=== PATIENT | female | born 1990 | race African-American/Black ===

== ENCOUNTER 2017-07-12 09:05 | Emergency (ER) | payer MEDICAID ==
[~2017-07-12] VITALS: Ht 167.6 cm; Wt 83.3 kg
[~2017-07-12 09:05] MED LIST: AMOX-291 PO; HYDR-3240 PO
[2017-07-12 09:06] VITALS: BP 107/69
[2017-07-12 09:47] LABS: BASOPHILS # (AUTO) 0.05 x10^3/uL (0-0.1); BASOPHILS % (AUTO) 1 % (0-1); EOSINOPHILS # (AUTO) 0.17 x10^3/uL (0-0.4); EOSINOPHILS % (AUTO) 2 % (1-7); LYMPHOCYTES # (AUTO) 2.87 x10^3/uL (1-3.4); LYMPHOCYTES % (AUTO) 39 % (22-44); MD NO; MEAN CORPUSCULAR HEMOGLOBIN 26.9 pg (27.0-34.8); MEAN CORPUSCULAR HGB CONC 33.1 g/dL (32.4-35.8); MEAN CORPUSCULAR VOLUME 81.2 fL (80-100); MEAN PLATELET VOLUME 9.7 fL (7.4-10.4); MONOCYTES # (AUTO) 0.71 x10^3/uL (0.2-0.8); MONOCYTES % (AUTO) 10 % (2-9); NEUTROPHILS # (AUTO) 3.52 x10^3/uL (1.8-6.8); NEUTROPHILS % (AUTO) 48 % (42-75); PLATELET COUNT 209 x10^3/uL (130-400); RED BLOOD COUNT 4.86 x10^6/uL (3.82-5.3); RED CELL DISTRIBUTION WIDTH 13.3 % (9.6-15.2)
[2017-07-12 09:59] LABS: ALANINE AMINOTRANSFERASE 23 U/L (12-78); ALBUMIN 3.5 g/dL (3.4-5.0); ANION GAP 7 mmol/L (5-15); CALCIUM 8.5 mg/dL (8.5-10.1); CHLORIDE 110 mmol/L (98-107); CREATININE 0.91 mg/dL (0.55-1.02)
[2017-07-12 10:04] LABS: ALKALINE PHOSPHATASE 75 U/L (45-117); BILIRUBIN,TOTAL 0.2 mg/dL (0.2-1.0)
[2017-07-12] MEDS ORDERED: MAALOX/HYOSCYAMINE/LIDOCAINE 45 ML BTL PO ONE (10:30)
[2017-07-12] MEDS ORDERED: MAALOX/HYOSCYAMINE/LIDOCAINE 45 ML BTL ONE (10:50)
[2017-07-12 11:08] LABS: MICROSCOPIC AUTO
[2017-07-12 11:12] LABS: CULTURE INDICATED? YES
== END 2017-07-12 12:16 | disposition home or self-care (01) ==
LOC: ED 12:02
DX: K29.00 Acute gastritis without bleeding (principal); Z90.89 Acquired absence of other organs; Z88.1 Allergy status to other antibiotic agents
CPT/HCPCS: 36415; 76700; 80053; 81001; 83690; 84703; 85025; 87086; 93005; 99285

== ENCOUNTER 2017-11-18 14:57 | Emergency (ER) | payer MEDICAID ==
[~2017-11-18] VITALS: Ht 167.6 cm; Wt 85.4 kg
[2017-11-18 15:09] VITALS: BP 141/82
== END 2017-11-18 18:22 | disposition home or self-care (01) ==
LOC: ED 18:00
DX: K59.00 Constipation, unspecified (principal)
CPT/HCPCS: 36415; 84703; 99283

== ENCOUNTER 2019-03-01 08:04 | Emergency (ER) | payer OTHER ==
[~2019-03-01] VITALS: Ht 167.6 cm; Wt 85.1 kg
--- NOTE | 2019-03-01 08:29 | NUR ---
FIRST CONTACT WITH PT. PT STATES "I'M COMING DOWN WITH A COLD, CHEST PAIN WHEN I COUGH, NAUSEA", ONSET WEDNESDAY. C/O NASAL CONGESTION/SORE THROAT. PT'S AOX4. RESPS EVEN AND UNLABORED. BP/SPO2 MONITORS IN PLACE. CALL LIGHT WITHIN REACH.
--- NOTE | 2019-03-01 08:44 | NUR ---
XRAY IN ROOM AT THIS TIME.
[2019-03-01] MEDS ORDERED: ONDANSETRON ODT 4 MG PO ONE (09:00)
[2019-03-01] MEDS ORDERED: IBUPROFEN 200 MG TABLET PO ONE (09:00)
[2019-03-01] MEDS ORDERED: IBUPROFEN 600 MG TABLET PO ONE (09:00)
[2019-03-01] MEDS ORDERED: ONDANSETRON ODT 4 MG ONE (09:04)
[2019-03-01] MEDS ORDERED: IBUPROFEN 200 MG TABLET ONE (09:05)
[2019-03-01 09:06] VITALS: BP 100/76
--- NOTE | 2019-03-01 09:07 | NUR ---
pt medicated per emar. pt tolerated well.
[2019-03-01 09:22] LABS: RAPID INFLUENZA A Negative (Negative); RAPID INFLUENZA B POSITIVE (Negative)
--- NOTE | 2019-03-01 10:18 | NUR ---
Patient given discharge instructions and they have confirmed that they understand the instructions. Patient ambulatory with steady gait.
== END 2019-03-01 10:19 | disposition home or self-care (01) ==
LOC: ED 09:58
DX: J10.1 Influenza due to other identified influenza virus with other respiratory manifestations (principal); Z88.1 Allergy status to other antibiotic agents; Z87.891 Personal history of nicotine dependence
CPT/HCPCS: 71046; 87400; 99284; Q0162